=== PATIENT | female | born 1975 | race Caucasian/White ===

== ENCOUNTER 2022-08-15 13:10 | Outpatient (CLI) | payer OTHER | END 2022-08-15 13:34 | disposition home or self-care (01) | LOC: MAMO-SONO 13:10 | PROVIDERS: ATTEND Obstetrics & Gynecology Maternal & Fetal Medicine | DX: Z12.31 Encounter for screening mammogram for malignant neoplasm of breast (principal); N63.0 Unspecified lump in unspecified breast; N64.4 Mastodynia; N60.11 Diffuse cystic mastopathy of right breast ==

== ENCOUNTER 2023-07-10 09:10 | Outpatient (CLI) | payer OTHER | END 2023-07-10 09:23 | disposition home or self-care (01) | LOC: MAMO-SONO 09:10 | PROVIDERS: ATTEND Obstetrics & Gynecology | DX: N60.19 Diffuse cystic mastopathy of unspecified breast (principal); N63 Unspecified lump in breast; N64.4 Mastodynia; R92.1 Mammographic calcification found on diagnostic imaging of breast; R92.0 Mammographic microcalcification found on diagnostic imaging of breast; R10.2 Pelvic and perineal pain ==

== ENCOUNTER 2024-09-29 13:21 | Outpatient (CLI) | payer OTHER | END 2024-09-29 13:28 | disposition home or self-care (01) | LOC: MAMO-SONO 13:21 | PROVIDERS: ATTEND Obstetrics & Gynecology | DX: N60.19 Diffuse cystic mastopathy of unspecified breast (principal); N63 Unspecified lump in breast; N64.4 Mastodynia; R92.1 Mammographic calcification found on diagnostic imaging of breast; R92.0 Mammographic microcalcification found on diagnostic imaging of breast; R10.2 Pelvic and perineal pain; Z00.8 Encounter for other general examination; M25.50 Pain in unspecified joint; M19.90 Unspecified osteoarthritis, unspecified site ==

== ENCOUNTER 2024-10-18 08:59 | Outpatient (CLI) | payer OTHER | END 2024-10-18 09:06 | disposition home or self-care (01) | LOC: SONOGRAMA 08:59 | DX: N39.0 Urinary tract infection, site not specified (principal); R10.30 Lower abdominal pain, unspecified ==

== ENCOUNTER → 2024-11-23 07:28 | Outpatient (CLI) | payer OTHER | END | disposition home or self-care (01) | LOC: LAB 07:28 | DX: E27.49 Other adrenocortical insufficiency (principal); E27.40 Unspecified adrenocortical insufficiency ==

== ENCOUNTER 2024-12-09 13:13 | Outpatient (CLI) | payer OTHER | END 2024-12-09 13:14 | disposition home or self-care (01) | LOC: NUCLEAR 13:13 | DX: M81.0 Age-related osteoporosis without current pathological fracture (principal) ==